=== PATIENT | male | born 1940 | race Caucasian/White ===

== ENCOUNTER 2017-10-26 15:09 | Inpatient (IN) | payer OTHER, MEDICARE ==
[~2017-10-26] VITALS: Ht 175.3 cm; Wt 83.2 kg
[2017-10-26] VITALS (9 sets, daily range): BP systolic 103–119; BP diastolic 56–63; PULSE 49–72; RESP 16; TEMP 98–99.5; O2SAT 97–100
[~2017-10-26 15:09] MED LIST: HYDR200T42 PO; METHOTREXATE INJ; SULF1TAB47 PO; TYLE3 PO
[2017-10-26] MEDS ORDERED: ALUMINUM/MAGNESIUM/SIMETH 30 ML CUP PO ONE (15:30)
[2017-10-26] MEDS ORDERED: LIDOCAINE VISCOUS 2% SOLN 15 ML UDC PO ONE (15:30)
[2017-10-26] MEDS ORDERED: ASPIRIN 325 MG TAB PO ONE (15:30)
--- NOTE | 2017-10-26 16:09 | RADRPT ---
EXAM DATE/TIME: 10/26/2017 15:46 [place] COMPARISON: No previous studies available for comparison. INDICATIONS : Abnormal ekg, sent by MEDICAL HISTORY : notknown SURGICAL HISTORY : not known ENCOUNTER: Initial ACUITY: 1 day PAIN SCORE: 0/10 LOCATION: Bilateral chest FINDINGS: A single view of the chest demonstrates the lungs to be symmetrically aerated without evidence of mas s, infiltrate or effusion. The cardiomediastinal contours are unremarkable. Osseous structures are intact. CONCLUSION: 1. No acute cardiopulmonary disease. Janusz Perea MD on October 26, 2017 at 16:07 Board Certified Radiologist. This report was verified electronically.
[2017-10-26 16:16] LABS: AUTOMATED NEUTROPHIL # 6.4 TH/MM3 (1.8-7.7); BASOPHIL % 0.1 % (0.0-2.0); EOSINOPHIL # 0.1 TH/MM3 (0-0.4); EOSINOPHIL % 0.8 % (0.0-4.0); HEMATOCRIT 39.5 % (39.0-51.0); HEMOGLOBIN 13.6 GM/DL (13.0-17.0); LYMPH % 14.7 % (9.0-44.0); LYMPHOCYTE # 1.2 TH/MM3 (1.0-4.8); MEAN CELL VOLUME 97.2 FL (80.0-100.0); MEAN CORPUSCULAR HEMOGLOBIN 33.5 PG (27.0-34.0); MEAN CORPUSCULAR HGB CONC 34.5 % (32.0-36.0); MEAN PLATELET VOLUME 7.5 FL (7.0-11.0); MONO % 8.4 % (0.0-8.0); MONOCYTE # 0.7 TH/MM3 (0-0.9); PLATELET COUNT 195 TH/MM3 (150-450); RED BLOOD COUNT 4.06 MIL/MM3 (4.50-5.90); RED CELL DISTRIBUTION WIDTH 14.1 % (11.6-17.2); WHITE BLOOD COUNT 8.4 TH/MM3 (4.0-11.0)
[2017-10-26 16:28] LABS: ALBUMIN 3.2 GM/DL (3.4-5.0); AST (GOT) 80 U/L (15-37); BICARBONATE 26.2 MEQ/L (21.0-32.0); BLOOD UREA NITROGEN 13 MG/DL (7-18); CALCIUM 8.5 MG/DL (8.5-10.1); CHLORIDE 104 MEQ/L (98-107); CREATININE 0.74 MG/DL (0.60-1.30); GLOMERULAR FILTRATION RATE 103 ML/MIN (>89); GLUCOSE,RANDOM 94 MG/DL (74-106); SODIUM (NA) 138 MEQ/L (136-145)
[2017-10-26 16:33] LABS: ALKALINE PHOSPHATASE 64 U/L (45-117); ALT (GPT) 18 U/L (12-78); TOTAL BILIRUBIN ADULT 0.6 MG/DL (0.2-1.0); TOTAL PROTEIN 6.5 GM/DL (6.4-8.2)
[2017-10-26 16:40] LABS: PROTHROMBIN TIME - PATIENT 10.5 SEC (9.8-11.6)
[2017-10-26] MEDS ORDERED: ONDANSETRON HCL 4 MG/2 ML VIAL IVP PRN (17:00)
[2017-10-26] MEDS ORDERED: SODIUM CHLORIDE 0.9% FLUSH 10 ML FLUSH IV FLUSH PRN (17:00)
[2017-10-26] MEDS ORDERED: MAGNESIUM HYDROXIDE SUSP 30 ML CUP PO PRN (17:00)
[2017-10-26] MEDS ORDERED: LACTULOSE SYRUP 20 GM/30 ML CUP PO PRN (17:00)
[2017-10-26] MEDS ORDERED: NALOXONE HCL 0.4 MG/ML AMP IV PUSH PRN (17:00)
[2017-10-26] MEDS ORDERED: HEPARIN SODIUM - IV 10,000 UNITS/10 ML VIAL IV ONE (17:00)
[2017-10-26] MEDS ORDERED: NITROGLYCERIN 2% OINT 1 GM PACKET TOPICAL ONE (17:00)
[2017-10-26] MEDS ORDERED: ACETAMINOPHEN 500 MG CPLT PO PRN (17:00)
[2017-10-26] MEDS ORDERED: SENNOSIDES 8.6 MG TAB PO PRN (17:00)
[2017-10-26] MEDS ORDERED: BISACODYL 10 MG SUPP RECTAL PRN (17:00)
[2017-10-26] MEDS ORDERED: ATORVASTATIN 80 MG TAB PO ONE (17:00)
--- NOTE | 2017-10-26 17:06 | HHI.HP ---
[facility] Unknown Admission Diagnosis NSTEMI Diagnoses: Chief Complaint: Chest pain. Travel History International Travel<30 Days: No Contact w/Intl Traveler <30 Da: No Traveled to Known Affected Are: No History of Present Illness Mr. Bryant is a pleasant 77-year-old male with a history of rheumatoid arthritis who presents to the emergency department on 10/26/2017 due to substernal nonradiating chest pain. On 10/25/2017 at around 1 PM patient complained of heartburn-like chest discomfort. He did not have any nausea vomiting or diaphoresis. He did feel some discomfort in his jaw area. This morning again he experienced similar discomfort - heartburn-like chest discomfort that lasted than his typical heartburn does. Nothing seems to make it better or worse. Due to persistent chest discomfort he decided to come to the emergency department. On arrival patient's vitals were largely unremarkable with pulse 58. Troponin was 12.7 and CK-MB was 8.4. EKG shows mild elevation in 2, 3 and aVF. Cardiology was consulted. Patient is scheduled for cardiac catheterization on 10/26/2017. Review of Systems Except as stated in HPI: all other systems reviewed are Neg Past Family Social History Past Medical History Rheumatoid arthritis GERD Past Surgical History Elissa fundoplication Reported Medications Tylenol #3 (Acetaminophen/Codeine Phosphate) 300 Mg/30 Mg Tab 1 Tab PO Q6HPRN FOR PAIN Bactrim Ds (Trimethoprim/Sulfamethoxazole) Tab 1 Tab PO BID Reported [Methotrexate Inj] WE Plaquenil (Hydroxychloroquine Sulfate) 200 Mg Tab 200 Mg PO BID Allergies: Coded Allergies: No Known Allergies (Verified Allergy, Mild, 10/19/08) Family History Father from [place] at [place] 79. No family history of Alzheimer's or Parkinson's. Social History Patient quit smoking in 1980. He smoked for about 25 years. He denies using alcohol or illicit drugs. Physical Exam Vital Signs Vital Signs Date Time Temp Pulse Resp B/P (MAP) Pulse Ox O2 Delivery O2 Flow Rate FiO2 10/26/17 15:26 67 16 99 Room Air 10/26/17 15:23 16 100 Room Air 10/26/17 15:19 98.0 58 16 119/63 (37) 98 Physical Exam GENERAL: This is a well-nourished, well-developed patient, in no apparent distress. SKIN: No rashes, ecchymoses or lesions. Warm and dry. HEAD: Atraumatic. Normocephalic. No temporal or scalp tenderness. EYES: Pupils equal round and reactive. No injection or drainage. ENT: Nose without bleeding, purulent drainage or septal hematoma. Airway patent. NECK: Trachea midline. No lymphadenopathy. Supple, nontender, no meningeal signs. CARDIOVASCULAR: Regular rate and rhythm without murmurs, gallops, or rubs. No JVD. RESPIRATORY: Clear to auscultation. Breath sounds equal bilaterally. No wheezes , rales, or rhonchi. GASTROINTESTINAL: Abdomen soft, non-tender, nondistended. No guarding. MUSCULOSKELETAL: Extremities without clubbing, cyanosis, or edema. NEUROLOGICAL: Awake and alert. Cranial nerves II through XII intact. No focal neurological deficits. Normal speech. Laboratory Laboratory Tests Test 10/26/17 15:25 White Blood Count 8.4 Red Blood Count 4.06 Hemoglobin 13.6 Hematocrit 39.5 Mean Corpuscular Volume 97.2 Mean Corpuscular Hemoglobin 33.5 Mean Corpuscular Hemoglobin Concent 34.5 Red Cell Distribution Width 14.1 Platelet Count 195 Mean Platelet Volume 7.5 Neutrophils (%) (Auto) 76.0 Lymphocytes (%) (Auto) 14.7 Monocytes (%) (Auto) 8.4 Eosinophils (%) (Auto) 0.8 Basophils (%) (Auto) 0.1 Neutrophils # (Auto) 6.4 Lymphocytes # (Auto) 1.2 Monocytes # (Auto) 0.7 Eosinophils # (Auto) 0.1 Basophils # (Auto) 0.0 CBC Comment DIFF FINAL Differential Comment Prothrombin Time 10.5 Prothromb Time International Ratio 1.0 Activated Partial Thromboplast Time 24.9 Blood Urea Nitrogen 13 Creatinine 0.74 Random Glucose 94 Total Protein 6.5 Albumin 3.2 Calcium Level 8.5 Alkaline Phosphatase 64 Aspartate Amino Transf (AST/SGOT) 80 Alanine Aminotransferase (ALT/SGPT) 18 Total Bilirubin 0.6 Sodium Level 138 Potassium Level 3.8 Chloride Level 104 Carbon Dioxide Level 26.2 Anion Gap 8 Estimat Glomerular Filtration Rate 103 Total Creatine Kinase 543 Creatine Kinase MB 45.7 Creatine Kinase MB % 8.4 Troponin I 12.70 Lipase 68 Result Diagram: 10/26/17 1525 10/26/17 1525 Imaging Last Impressions Chest X-Ray 10/26/17 1520 Signed Impressions: Service Date/Time: Thursday, October 26, 2017 15:46 - CONCLUSION: 1. No acute cardiopulmonary disease. MD Danette Swan VTE Risk Assessment Danette VTE Risk Assessment: Mod/High Risk (score >= 2) Caprini Risk Assessment Model Point Value = 1 Point Value = 2 Point Value = 3 Point Value = 5 Age 41-60 Minor surgery BMI > 25 kg/m2 Swollen legs Varicose veins or History of unexplained or recurrent spontaneous Oral contraceptives or hormone replacement Sepsis (< 1 month) Serious lung disease, including pneumonia (< 1 month) Abnormal pulmonary function Acute myocardial infarction Congestive heart failure (< 1 month) History of inflammatory bowel disease Medical patient at bed rest Age 61-74 Arthroscopic surgery Major open surgery (> 45 min) Laparoscopic surgery (> 45 min) Malignancy Confined to bed (> 72 hours) Immobilizing plaster cast Central venous access Age >= 75 History of VTE Family history of VTE Factor V Leiden Prothrombin [id number] Lupus anticoagulant Anticardiolipin antibodies Elevated serum homocysteine Heparin-induced thrombocytopenia Other congenital or acquired thrombophilia Stroke (< 1 month) Elective arthroplasty Hip, pelvis, or leg fracture Acute spinal cord injury (< 1 month) Prophylaxis Regimen Total Risk Factor Score Risk Level Prophylaxis Regimen 0-1 Low Early ambulation 2 Moderate Order ONE of the following: *Sequential Compression Device (SCD) *Heparin 5000 units SQ BID 3-4 Higher Order ONE of the following medications: *Heparin 5000 units SQ TID *Enoxaparin/Lovenox 40 mg SQ daily (WT < 150 kg, CrCl > 30 mL/min) *Enoxaparin/Lovenox 30 mg SQ daily (WT < 150 kg, CrCl > 10-29 mL/min) *Enoxaparin/Lovenox 30 mg SQ BID (WT < 150 kg, CrCl > 30 mL/min) AND/OR *Sequential Compression Device (SCD) 5 or more Highest Order ONE of the following medications: *Heparin 5000 units SQ TID (Preferred with Epidurals) *Enoxaparin/Lovenox 40 mg SQ daily (WT < 150 kg, CrCl > 30 mL/min) *Enoxaparin/Lovenox 30 mg SQ daily (WT < 150 kg, CrCl > 10-29 mL/min) *Enoxaparin/Lovenox 30 mg SQ BID (WT < 150 kg, CrCl > 30 mL/min) AND *Sequential Compression Device (SCD) Assessment and Plan Problem List: (1) NSTEMI (non-ST elevated myocardial infarction) ICD Code: I21.4 - Non-ST elevation (NSTEMI) myocardial infarction (2) Rheumatoid arthritis ICD Code: M06.9 - Rheumatoid arthritis, unspecified Assessment and Plan Mr. Bryant is a pleasant 77-year-old male with a history of GERD, rheumatoid arthritis who presented to the emergency department due to substernal heartburn-like chest pain with radiation to his jaws. Patient had initial episode on 10/25/2017. However due to persistent discomfort on the day of presentation 10/26/2017, patient decided to seek medical attention. On arrival patient's troponin was 12.7. EKG was suspicious for mild ST elevation in lead to especially 3 and aVF. Patient received 325 mg aspirin in the ED. Due to low heart rate he did not receive metoprolol. - Non-ST elevation myocardial infarction - Huller Operator Dr. Fields already evaluated patient and will take him for cardiac catheterization this evening. - Heparin drip started in the ED. - We'll give patient atorvastatin 40 mg now and daily at bedtime starting . Continue aspirin 81 mg daily. - Heart rate is in the upper 50s, avoid beta blockers for now. - Consider Echocardiogram. - Rheumatoid arthritis - Patient takes methotrexate 2.5 mg by mouth weekly. - GERD - Pepcid 20mg BID. Full code. Pharmacological DVT prophylaxis to be considered after Cath. Physician Certification 2 Midnight Certification Type: Admission for Inpatient Services Order for Inpatient Services The services are ordered in accordance with Medicare regulations or non- Medicare payer requirements, as applicable. In the case of services not specified as inpatient-only, they are appropriately provided as inpatient services in accordance with the 2-midnight benchmark. Estimated LOS (days): 2 days is the estimated time the patient will need to remain in the hospital, assuming treatment plan goals are met and no additional complications. Post-Hospital Plan: Home Brennon Goldsmith DO Oct 26, 2017 5:06 pm
--- NOTE | 2017-10-26 17:28 | PD ---
HPI Chief Complaint: Chest Pain Time Seen by Provider: 15:13 Travel History International Travel<30 days: No Contact w/Intl Traveler<30days: No Traveled to known affect area: No History of Present Illness HPI The patient is a 77-year-old male who presents emergency department for chest pain. The patient developed chest pain last night, chest pain is substernal, nonradiating, described as dull, achy, similar to previous GERD. The patient has a history of previous knee cell phone application for GERD with subsequent improvement of his symptoms. He does note mild shortness of breath secondary to the pain but denies any nausea, vomiting, or diaphoresis. He denies any history of hypertension, hyperlipidemia, or coronary artery disease. He denies any history diabetes. He does have a history of rheumatoid arthritis. Symptoms are moderate. PFSH Past Medical History Arthritis: Yes Diminished Hearing: Yes (HEARING AIDS BILAT) GERD: Yes Hypertension: Yes Influenza Vaccination: Yes Past Surgical History Abdominal Surgery: Yes (HIATAL HERNIA SURGERY) Social History Alcohol Use: No Tobacco Use: No Substance Use: No Allergies-Medications (Allergen,Severity, Reaction): Coded Allergies: No Known Allergies (Verified Allergy, Mild, 10/19/08) Reported Meds & Prescriptions Reported Meds & Active Scripts Active Tylenol #3 (Acetaminophen/Codeine Phosphate) 300 Mg/30 Mg Tab 1 Tab PO Q6HPRN FOR PAIN Bactrim Ds (Trimethoprim/Sulfamethoxazole) Tab 1 Tab PO BID Reported [Methotrexate Inj] WE Plaquenil (Hydroxychloroquine Sulfate) 200 Mg Tab 200 Mg PO BID Review of Systems Except as stated in HPI: all other systems reviewed are Neg General / Constitutional: No: Fever Cardiovascular: Positive: Chest Pain or Discomfort Respiratory: Positive: Shortness of Breath Gastrointestinal: Positive: Other (history of GERD with previous Jules fundoplication), No: Nausea, Vomiting Musculoskeletal: No: Weakness Neurologic: No: Dizziness Physical Exam Narrative GENERAL: Awake, alert, pleasant 77-year-old male who appears his stated age and is in no acute respiratory distress. SKIN: Focused skin assessment warm/dry. HEAD: Atraumatic. Normocephalic. EYES: No injection or drainage. ENT: No nasal bleeding or discharge. Mucous membranes pink and moist. NECK: Trachea midline. No JVD. CARDIOVASCULAR: Regular rate and rhythm. No murmur appreciated. RESPIRATORY: No accessory muscle use. Clear to auscultation. Breath sounds equal bilaterally. GASTROINTESTINAL: Abdomen soft, non-tender, nondistended. No rebound tenderness. MUSCULOSKELETAL: No obvious deformities. No clubbing. No cyanosis. No edema. NEUROLOGICAL: Awake and alert. No obvious cranial nerve deficits. Motor grossly within normal limits. Normal speech. PSYCHIATRIC: Appropriate mood and affect; insight and judgment normal. Data Data Last Documented VS Vital Signs Date Time Temp Pulse Resp B/P (MAP) Pulse Ox O2 Delivery O2 Flow Rate FiO2 10/26/17 15:26 67 16 99 Room Air 10/26/17 15:19 98.0 119/63 (81) Orders Orders Electrocardiogram (10/26/17 15:20) Complete Blood Count With Diff (10/26/17 15:20) Comprehensive Metabolic Panel (10/26/17 15:20) Ckmb (Isoenzyme) Profile (10/26/17 15:20) Troponin I (10/26/17 15:20) Prothrombin Time / Inr (Pt) (10/26/17 15:20) Act Partial Throm Time (Ptt) (10/26/17 15:20) Lipase (10/26/17 15:20) Chest, Single Ap (10/26/17 15:20) Iv Access Insert/Monitor (10/26/17 15:20) Ecg Monitoring (10/26/17 15:20) Oximetry (10/26/17 15:20) Al-Mag Hy-Si 40-40-4 Mg/Ml Liq (Mag-Al P (10/26/17 15:30) Lidocaine 2% Viscous (Xylocaine 2% Visco (10/26/17 15:30) Aspirin (Aspirin) (10/26/17 15:30) CKMB (10/26/17 15:25) CKMB% (10/26/17 15:25) Nitroglycerin 2% Oint (Nitroglycerin 2% (10/26/17 17:00) NPO (10/26/17 16:50) Heparin Inj (Heparin Inj) (10/26/17 17:00) Heparin Inj (Heparin Inj) (10/26/17 23:00) Heparin Inj (Heparin Inj) (10/26/17 23:00) Heparin-D5w 25,000 U/250 Ml (Heparin-D5w (10/26/17 17:30) Act Partial Throm Time (Ptt) (10/26/17 16:50) Cbc No Diff, Includes Plts (10/26/17 16:50) Cbc No Diff, Includes Plts (10/29/17 06:00) Act Partial Throm Time (Ptt) (10/26/17 23:50) Occult Blood (Hemoccult) Stool (10/26/17 16:50) Admit Order (Ed Use Only) (10/26/17 16:51) Labs Laboratory Tests Test 10/26/17 15:25 White Blood Count 8.4 TH/MM3 Red Blood Count 4.06 MIL/MM3 Hemoglobin 13.6 GM/DL Hematocrit 39.5 % Mean Corpuscular Volume 97.2 FL Mean Corpuscular Hemoglobin 33.5 PG Mean Corpuscular Hemoglobin Concent 34.5 % Red Cell Distribution Width 14.1 % Platelet Count 195 TH/MM3 Mean Platelet Volume 7.5 FL Neutrophils (%) (Auto) 76.0 % Lymphocytes (%) (Auto) 14.7 % Monocytes (%) (Auto) 8.4 % Eosinophils (%) (Auto) 0.8 % Basophils (%) (Auto) 0.1 % Neutrophils # (Auto) 6.4 TH/MM3 Lymphocytes # (Auto) 1.2 TH/MM3 Monocytes # (Auto) 0.7 TH/MM3 Eosinophils # (Auto) 0.1 TH/MM3 Basophils # (Auto) 0.0 TH/MM3 CBC Comment DIFF FINAL Differential Comment Prothrombin Time 10.5 SEC Prothromb Time International Ratio 1.0 RATIO Activated Partial Thromboplast Time 24.9 SEC Blood Urea Nitrogen 13 MG/DL Creatinine 0.74 MG/DL Random Glucose 94 MG/DL Total Protein 6.5 GM/DL Albumin 3.2 GM/DL Calcium Level 8.5 MG/DL Alkaline Phosphatase 64 U/L Aspartate Amino Transf (AST/SGOT) 80 U/L Alanine Aminotransferase (ALT/SGPT) 18 U/L Total Bilirubin 0.6 MG/DL Sodium Level 138 MEQ/L Potassium Level 3.8 MEQ/L Chloride Level 104 MEQ/L Carbon Dioxide Level 26.2 MEQ/L Anion Gap 8 MEQ/L Estimat Glomerular Filtration Rate 103 ML/MIN Total Creatine Kinase 543 U/L Creatine Kinase MB 45.7 NG/ML Creatine Kinase MB % 8.4 % Troponin I 12.70 NG/ML Lipase 68 U/L [facility] Medical Decision Making Medical Screen Exam Complete: Yes Emergency Medical Condition: Yes Medical Record Reviewed: Yes Interpretation(s) EKG reveals sinus bradycardia with sinus arrhythmia. ST elevation in lead 3 that is not seen in lead aVF or lead 2. Last Impressions Chest X-Ray 10/26/17 1520 Signed Impressions: Service Date/Time: Thursday, October 26, 2017 15:46 - CONCLUSION: 1. No acute cardiopulmonary disease. Janusz Perea MD Laboratory Tests Test 10/26/17 15:25 White Blood Count 8.4 TH/MM3 Red Blood Count 4.06 MIL/MM3 Hemoglobin 13.6 GM/DL Hematocrit 39.5 % Mean Corpuscular Volume 97.2 FL Mean Corpuscular Hemoglobin 33.5 PG Mean Corpuscular Hemoglobin Concent 34.5 % Red Cell Distribution Width 14.1 % Platelet Count 195 TH/MM3 Mean Platelet Volume 7.5 FL Neutrophils (%) (Auto) 76.0 % Lymphocytes (%) (Auto) 14.7 % Monocytes (%) (Auto) 8.4 % Eosinophils (%) (Auto) 0.8 % Basophils (%) (Auto) 0.1 % Neutrophils # (Auto) 6.4 TH/MM3 Lymphocytes # (Auto) 1.2 TH/MM3 Monocytes # (Auto) 0.7 TH/MM3 Eosinophils # (Auto) 0.1 TH/MM3 Basophils # (Auto) 0.0 TH/MM3 CBC Comment DIFF FINAL Differential Comment Prothrombin Time 10.5 SEC Prothromb Time International Ratio 1.0 RATIO Activated Partial Thromboplast Time 24.9 SEC Blood Urea Nitrogen 13 MG/DL Creatinine 0.74 MG/DL Random Glucose 94 MG/DL Total Protein 6.5 GM/DL Albumin 3.2 GM/DL Calcium Level 8.5 MG/DL Alkaline Phosphatase 64 U/L Aspartate Amino Transf (AST/SGOT) 80 U/L Alanine Aminotransferase (ALT/SGPT) 18 U/L Total Bilirubin 0.6 MG/DL Sodium Level 138 MEQ/L Potassium Level 3.8 MEQ/L Chloride Level 104 MEQ/L Carbon Dioxide Level 26.2 MEQ/L Anion Gap 8 MEQ/L Estimat Glomerular Filtration Rate 103 ML/MIN Total Creatine Kinase 543 U/L Creatine Kinase MB 45.7 NG/ML Creatine Kinase MB % 8.4 % Troponin I 12.70 NG/ML Lipase 68 U/L Differential Diagnosis Differential showed diagnosis includes STEMI, ACS, GERD, gastritis, pancreatitis , peptic ulcer disease, esophageal spasm. Narrative Course IV was established, labs are drawn and sent, and the patient was placed on cardiac telemetry monitoring and continuous pulse oximetry monitoring. Chest x- ray was obtained. EKG was ordered and interpreted. Patient was administered aspirin, Nitropaste, and monitored in the emergency department. EKG revealed sinus bradycardia with sinus arrhythmia, mild ST elevation lead 3 not seen only 2 or aVF. No reciprocal changes noted. Chest x-rays obtained. Unremarkable. Patient's troponin was positive. I discussed the patient with the on-call acquisition marketing manager for [facility], Dr. Fields, who recommended heparin, nothing by mouth, will go to the [facility]. The patient was placed on a heparin drip, he was chest pain-free in the emergency department. I discussed the patient with the on-call [facility] hospitalist, Dr. Goldsmith, who agrees with admission. The patient will be admitted to go to the [facility]. Critical Care Narrative Aggregate critical care time was 40 minutes. Time to perform other separately billable procedures was not included in the critical care time. My time did not include minutes spent treating any other patients simultaneously or on activities that did not directly contribute to the patient's treatment. The services I provided to this patient were to treat and/or prevent clinically significant deterioration that could result in: Ischemia, arrhythmia, cardiogenic shock, . I provided critical care services requiring my management, as noted below: Chart data review, documentation time, medication orders and management, vital sign assessments/reviewing monitor data, ordering and reviewing lab tests, ordering and interpreting/reviewing x-rays and diagnostic studies, care of the patient and discussion of the patient with the admitting physicians. Physician Communication Physician Communication I discussed the patient with acquisition marketing manager, Dr. Fields, and the hospitalist, Dr. Goldsmith. Diagnosis Primary Impression: NSTEMI, initial episode of care Admitting Information Admitting Physician Requests: Admit Condition: Stable Juan José Ventura MD Oct 26, 2017 17:28
[2017-10-26] MEDS ORDERED: ATORVASTATIN 40 MG TAB PO ONE (17:30)
[2017-10-26] MEDS ORDERED: HEPARIN-D5W 25,000 U/250 ML 250 ML IV SCH (17:30)
[2017-10-26] MEDS ORDERED: METH2.5T PO (19:03)
[2017-10-26] MEDS ORDERED: MIDAZOLAM HCL 2 MG/2 ML VIAL ONE ×2 (19:24→19:39)
[2017-10-26] MEDS ORDERED: PHENYLEPHRINE HCL 10 MG/ML VIAL ONE (19:58)
[2017-10-26] MEDS ORDERED: STERILE WATER FOR INJECTION 10 ML VIAL ONE (20:07)
[2017-10-26] MEDS ORDERED: BIVALIRUDIN 250 MG VIAL ONE (20:07)
[2017-10-26] MEDS ORDERED: TICAGRELOR 90 MG TAB PO ONE (20:17)
[2017-10-26] MEDS ORDERED: BIVALIRUDIN INJ 250 MG in SODIUM CHLORIDE 0.9% INJ 50 ML IV SCH (20:34)
[2017-10-26] MEDS ORDERED: SODIUM CHLOR 0.9% 1000 ML INJ 1,000 ML IV SCH (20:34)
--- NOTE | 2017-10-26 20:35 | CATHPROC ---
[facility] HIS Report Study Information Study Number Admission Scheduled Start Study Start [id number] Oct 26 2017 4:52PM 10/26/2017 Oct 26 2017 7:02PM [place] [facility] Cardiac Catheterization Admit Source Facility Department Emergency department [facility] - Morphology Teacher Physician and Clinical Staff Initial Cuate Altman Automatic Paint Sprayer Operator Amisha Calabrese,BOB Recorder Kortney Hutchison,RT(R) Scrub Verónica López,TAR PROCESSING TECHNICIAN TECH2 Procedures Performed Procedure Location (Site) Vessel Name Angiogram LV LV Ventricle Coronary Angiograms LCA Left Coronary Coronary Angiograms RCA Right Coronary Drug Eluting Inflatio RCA Mid Right Coronary L Heart Cath PTCA RCA Mid Right Coronary Wire insertion Fem Art (right) Femoral Art Equipment Time English Language Arts Teacher Description Size Mfg Part Number Used/Scraped WIRE, BALANCE MIDDLEWEIGHT [id number] 19:59 [employer] 190CM Used 190CM *[id number] TRANSDUCER, TRUWAVE [id number] 19:11 LUTHER AVELAR * Used W/STOCKCOCK *[id number] *[id number] *[id number] *[id number] [id number] *[id number] PIGTAIL ANG. 145 INFINITI [id number] CATHETER *[id number] 20:19 DAIG/[employer]. [employer]UARD[employer] MEDICAL ANGIOSEAL, FR6 VIP FR 6 Used *[id number] 19:11 [employer], CCL CUSTOM * Used *[id number] 19:11 [employer]O PACER PEN, SKIN DUAL W/ RULER * Used *[id number] 20:00 [employer] BALLOON, 2.0 X 20MM EUPHORA 20MM Used *[id number] BALLOON, 2.75 X 12MM NC [id number] 20:11 [employer] 12MM Used EUPHORA *[id number] 20:03 [employer] STENT, 2.75 18MM SHARMILA 2.75 18MM Used *[id number] 20:02 [employer] MEDICAL 30 FRANDY INDEFLATOR Used *[id number] 19:11 [employer] MEDICAL SHEATH, FR6.5 PRELUDE 11CM FR 6.5 038ACT Used *[id number] 19:11 [employer] MEDICAL WIRE, 3MMJ .035 180CM 180CM Used *[id number] 19:11 NAMIC MANIFOLD, 4 PORT * Used *[id number] 20:15 NAMIC TUBING, HIGH PRESSURE 20" 20" Used *[id number] 19:11 [employer] OMNIPAQUE, 350 MG, 100ML 100ML [id number] Used 20:34 [employer]COMED OMNIPAQUE, 350 MG, 50ML 50ML [id number] Used [id number] 19:11 [employer] MED[employer] BLANKET,WARM AIR CCL * Used *[id number] Equipment Model, Serial, Lot Number and Expiration Data Description Model Number Serial Number Lot Number Expiration Date ANGIOSEAL, LYNDSAY VIP [id number] 07-10-2018 STENT, 2.75 18MM SHARMILA [id number] 04-25-2019 History: Current Medications Medication Dosage/Unit Route Frequency Last Date/Time Taken ASA LIPITOR History: Allergies Allergy Reaction No Known Allergies History: Risk Factors Family History of Hypertension Dyslipidemia Previous CO Previous Heart Failure Premature CAD Yes No No No No Prior Valve Prior PCI Prior CABG Surgery No No No Cerebrovascular Peripheral Artery Chronic Lung On Dialysis Diabetes Disease Disease Disease No No No Yes No History: Symptoms/Diagnosis Selection Items Chest pain SOB Labs Hgb (g/dl) Hct (%) RBC (MIL/MM3) WBC (l/cumm) Platelets (thousands) 11.60-17.00 35.00-51.00 4.00-5.90 4.00-11.00 150.00-450.00 13.6 39.5 4 8.4 195 Glucose (mg/dl) BUN (mg/dl) Creatinine (mg/dl) BUN:Creatinine (1:x) 74.00-106.00 7.00-18.00 0.50-1.30 10.00-20.00 94 13 0.7 18.6 Na (meq/l) K (meq/l) 136.00-145.00 3.50-5.10 138 3.8 INR (PTT:PT) 0.90-1.10 1 Troponin I (ng/ml) CPK (u/l) CPK-MB (ng/ML) 0.02-0.05 26.00-308.00 0.50-3.60 12.7 543 45.7 Medication Medication Total Dose (Bolus/Oral) Medication Total Dosage/Unit 1% XYLOCAINE 20 mL ANGIOMAX BOLUS 13 mL BRILINTA 180 mg NTG (IC) 100 mcg VERSED 3 mg Medications (Bolus/Oral) Medication Time Given Dosage/Unit Administered By Reason VERSED 10/26/2017 7:37:50 PM 1 mg Hesher, Amisha 1 mg VERSED given in lab by Amisha Calabrese RN in Right Antecubital via Peripheral IV. Ordered by Cuate Kent. VERSED 10/26/2017 7:38:30 PM 1 mg Hesher, Amisha 1 mg VERSED given in lab by Amisha Calabrese RN in Right Antecubital via Peripheral IV. Ordered by Cuate Kent. VERSED 10/26/2017 7:40:33 PM 1 mg Hesher, Amisha 1 mg VERSED given in lab by Amisha Calabrese RN in Right Antecubital via Peripheral IV. Ordered by Cuate Kent. 1% XYLOCAINE 10/26/2017 7:41:12 PM 20 mL Cuate Fields 20 mL 1% XYLOCAINE given in lab by Cuate Fields in Right Groin via Subcutaneous. ANGIOMAX BOLUS 10/26/2017 7:52:19 PM 13 mL Moses Calabreseon 13 mL ANGIOMAX BOLUS given in lab by Amisha Calabrese RN in Right Antecubital via Peripheral IV. Order ed by Cuate Fields. NTG (IC) 10/26/2017 8:07:17 PM 100 mcg Cuate Fields 100 mcg NTG (IC) given in lab by Cuate Fields in Right Groin via Intra-coronary. BRILINTA 10/26/2017 8:23:58 PM 180 mg Amisha Calabrese 180 mg BRILINTA given in lab by Amisha Calabrese, BOB via Oral. Ordered by Cuate Fields. Medication (Drip) Medication Time Given Dosage/Unit Concentration/Unit Diluent (ml) Solution ANGIOMAX DRIP 10/26/2017 7:53:36 PM 1.752 mg/kg/hr 250 mg 50 NaCl .9 1.752 mg/kg/hr ANGIOMAX DRIP given in lab by Amisha Calabrese RN in Right Antecubital via Peripheral I V. Pump/Drip Flow = 30.1 ml/hr using NaCl .9 with a concentration of 250 mg in 50 ml. Ordered by Cuate Fields. ANGIOMAX DRIP 10/26/2017 8:22:49 PM 0 units/hr 0 STOPPED 0 units/hr ANGIOMAX DRIP STOPPED given in lab by Amisha Calabrese RN in Right Antecubital via Peripher al IV. Pump/Drip Flow = 30.1 ml/hr using [Solution Name]. Ordered by Cuate Fields. IV Solutions 10/26/2017 7:13:10 PM 50 mL (IV) NaCl .9 IV Solutions given in lab by Amisha Calabrese RN in Right Antecubital via Peripheral IV. Pump/Drip Paul w using NaCl .9. Initial Case Assessment Cardiovascular HR Rhythm NIBP Chest Pain 75 SR 104/73 0 Edema Present Skin color Skin None Normal Warm Dry Circulatory - Right Pulses Dorsalis Pedis Femoral 3 3 Scale (0,1,2,3,4,d) Circulatory - Left Pulses Dorsalis Pedis Femoral 3 3 Scale (0,1,2,3,4,d) Neurological State Oriented to time-place- Alert Moves all extremities person Respiration - General Respiration Rate SpO2 (%) (B/min) 13 100 Chronological Log Time Study Chronological Log 19:12:55 Patient arrived via Bed. 19:12:56 Patient Name, D.O.B, / Armband Verified By R.N. 19:12:56 Consent signed by the physician and the patient and verified by the Morphology Teacher staff. 19:12:57 Pre-op and post- op instructions given; patient acknowledges understanding of instructions. 19:12:57 Verbal Stimulation=2 Physical Stimulation=2 Airway=2 Respiration=2 TOTAL=8. (0=absent, 1=li mited, 2=present) 19:12:58 Presedation assessment performed by Morphology Teacher RN. 19:13:01 Patient has been NPO for More than 6Hrs. 19:13:02 Skin Breakdown- NONE PER PT 19:13:04 Patient Warmer Placed on the Table. 19:13:06 Ankit Prominences Protected 19:13:09 A # 18 IV was noted in the Antecubital (right). Grade = 0 19:13:10 IV Solutions given in lab by Amisha Calabrese RN in Right Antecubital via Peripheral IV. Pum p/Drip Flow using NaCl .9. 19:13:11 History and physical on the chart or being dictated. Assessment: Initial Case, HR=75 BPM, Rhythm=SR, QCGU=504/73 mmhg, Chest Pain=0, Edema=None, Col or=Normal, Skin = Warm, Dry Right Pulses: Rajendra Ped=3, Femoral=3 19:13:12 Left Pulses: Rajendra Ped=3, Femoral=3 Neurological: State=Alert, Ox3, DORMAN Respiration: Resp=13 B/min, AbH8=888 % Vitals capture started with the following parameters, Patient=Adult, Interval=5 min, Initial Pr uvztxk=707 mmHg, 19:22:20 Deflation Rate=5 mmHg, Cuff placed on Left Arm 19:22:54 HR=72 bpm, BUXK=958/73 mmhg, ZwF3=669.0 %, Resp=27 B/min 19:27:38 MD paged 19:27:41 Reference ECG taken 19:28:24 HR=72 bpm, KPPS=491/71 mmhg, SpO2=99.0 %, Resp=17 B/min 19:28:29 Pressure channel 1 zeroed. 19:32:54 HR=73 bpm, VNKQ=185/66 mmhg, SpO2=99.0 %, Resp=18 B/min 19:33:14 MD arrived. Time Out. Correct patient, correct procedure, correct physician, power injector not loaded with contrast with surgical 19:37:43 team present. Time Out Concurred by MD and individual staff in procedure. 19:37:50 1 mg VERSED given in lab by Amisha Calabrese, BOB in Right Antecubital via Peripheral IV. Orde red by Cuate Fields. 19:37:53 HR=76 bpm, QMYA=114/65 mmhg, SpO2=98.0 %, Resp=9 B/min 19:38:30 Case Start 19:38:30 1 mg VERSED given in lab by Amisha Calabrese, BOB in Right Antecubital via Peripheral IV. Orde red by Cuate Fields. 19:40:33 1 mg VERSED given in lab by Amisha Calabrese, BOB in Right Antecubital via Peripheral IV. Orde red by Cuate Fields. 19:41:12 20 mL 1% XYLOCAINE given in lab by Cuate Fields in Right Groin via Subcutaneous. 19:42:44 Access site was Right Femoral Artery. 19:42:51 A SHEATH, FR6.5 PRELUDE 11CM FR 6.5 was advanced into the Fem Art (right) using the Percuta neous technique. 19:42:56 HR=70 bpm, NIBP=99/57 mmhg, SpO2=97.0 %, Resp=26 B/min A JL 4.0 INFINITI CATHETER FR 6 was advanced over a wire. OMNIPAQUE, 350 MG, 100ML 100ML was us ed for 19:43:39 injections. Recorded Pressure: Ao, HR=65, Condition=Condition 1 19:44:55 (Aorta) Ao 86/48/65 19:45:28 The LCA was injected and visualized at various angles. OMNIPAQUE, 350 MG, 100ML 100ML used . 19:46:51 Catheter was removed 19:47:51 HR=79 bpm, XUSL=700/58 mmhg, SpO2=98.0 %, Resp=16 B/min A 3DRC INFINITI CATHETER FR 6 was advanced over a wire. OMNIPAQUE, 350 MG, 100ML 100ML was used for 19:47:58 injections. 19:48:34 The RCA was injected and visualized at various angles. OMNIPAQUE, 350 MG, 100ML 100ML used . 19:49:14 Catheter was removed A JR 4.0 GUIDE CATHETER FR 6 was advanced over a wire. OMNIPAQUE, 350 MG, 100ML 100ML was used for 19:50:17 injections. 13 mL ANGIOMAX BOLUS given in lab by Amisha Calabrese, BOB in Right Antecubital via Peripheral IV. Ordered by Donnie, 19:52:19 Cuate. 19:52:54 HR=77 bpm, ALGR=436/61 mmhg, SpO2=97.0 %, Resp=18 B/min 19:53:30 Catheter was removed 1.752 mg/kg/hr ANGIOMAX DRIP given in lab by Amisha Calabrese, BOB in Right Antecubital via [facility] eral IV. Pump/Drip 19:53:36 Flow = 30.1 ml/hr using NaCl .9 with a concentration of 250 mg in 50 ml. Ordered by Nikos Fields. A JR 4.0 SH GUIDE CATHETER FR 6 was advanced over a wire. OMNIPAQUE, 350 MG, 100ML 100ML was us ed for 19:54:44 injections. 19:57:53 HR=75 bpm, HVZA=426/61 mmhg, SpO2=96.0 %, Resp=17 B/min 19:58:53 A WIRE, BALANCE MIDDLEWEIGHT 190CM 190CM was inserted via Fem Art (right). 19:59:23 Interventional wire has crossed the lesion A BALLOON, 2.0 X 20MM EUPHORA 20MM was inserted over WIRE, BALANCE MIDDLEWEIGHT 190CM 190CM via the 20:01:47 Fem Art (right). A BALLOON, 2.0 X 20MM EUPHORA 20MM over a WIRE, BALANCE MIDDLEWEIGHT 190CM 190CM in the RCA Mid was 20:01:54 inflated using a 30 FRANDY INDEFLATOR at 14 frandy for 23 sec. 20:02:52 HR=73 bpm, XVWR=124/62 mmhg, SpO2=96.0 %, Resp=13 B/min 20:03:02 Balloon Removed. A STENT, 2.75 18MM SHARMILA 2.75 18MM was advanced through a JR 4.0 SH GUIDE CATHETER FR 6 over a W PAULO, 20:04:40 BALANCE MIDDLEWEIGHT 190CM 190CM. A STENT, 2.75 18MM SHARMILA 2.75 18MM was deployed using a 30 FRANDY INDEFLATOR at 12 atmospheres for 22 seconds 20:05:04 in the RCA Mid. 20:06:39 Delivery device removed 20:07:17 100 mcg NTG (IC) given in lab by Cuate Fields in Right Groin via Intra-coronary. 20:07:53 HR=80 bpm, QEDS=544/63 mmhg, SpO2=96.0 %, Resp=15 B/min A BALLOON, 2.75 X 12MM NC EUPHORA 12MM was inserted over WIRE, BALANCE MIDDLEWEIGHT 190CM 190CM via 20:11:28 the Fem Art (right). A BALLOON, 2.75 X 12MM NC EUPHORA 12MM over a WIRE, BALANCE MIDDLEWEIGHT 190CM 190CM in the RCA Mid 20:11:34 was inflated using a 30 FRANDY INDEFLATOR at 20 frandy for 23 sec. 20:12:52 HR=90 bpm, WNFV=113/78 mmhg, SpO2=96.0 %, Resp=19 B/min A BALLOON, 2.75 X 12MM NC EUPHORA 12MM over a WIRE, BALANCE MIDDLEWEIGHT 190CM 190CM in the RCA Mid 20:13:02 was inflated using a 30 FRANDY INDEFLATOR at 20 frandy for 15 sec. 20:13:28 Balloon Removed. 20:15:02 Wire removed 20:15:04 Catheter was removed A PIGTAIL ANG. 145 INFINITI CATHETER FR 6 was advanced over a wire. OMNIPAQUE, 350 MG, 100ML 10 0ML was 20:15:09 used for injections. Recorded Pressure: LV, HR=79, Condition=Condition 1 20:16:11 (Left Ventricle) LV 121/7/16 20:16:31 The LV was injected at 10 cc/sec for a total of 30. OMNIPAQUE, 350 MG, 50ML 50ML used. Recorded Pressure: LV, Ao, HR=82, Condition=Condition 1 20:17:34 (Left Ventricle) LV 110/6/13, (Aorta) Ao 119/63/89 20:17:55 HR=80 bpm, AXCI=844/75 mmhg, SpO2=96.0 %, Resp=19 B/min 20:18:05 Catheter was removed 20:18:41 An injection in the Fem Art (right) was made through the SHEATH, FR6.5 PRELUDE 11CM FR 6.5. 20:20:02 ANGIOSEAL, FR6 VIP FR 6 placement in the Fem Art (right) 20:21:07 Case End 20:21:09 Sterile dressing applied to site 20:21:10 No case complications noted. 20:21:11 Case complication noted. 20:21:13 Cine recording checked. 20:21:14 Bedside Report will be given. 20:21:16 Implantable Device card placed in patient's chart. 20:21:19 Contrast Scanned 20:21:25 A Left Heart Cath was performed. 0 units/hr ANGIOMAX DRIP STOPPED given in lab by Amisha Calabrese, BOB in Right Antecubital via Pe ripheral IV. 20:22:49 Pump/Drip Flow = 30.1 ml/hr using [Solution Name]. Ordered by Cuate Fields. 20:22:52 HR=86 bpm, NVFR=552/80 mmhg, SpO2=97.0 %, Resp=22 B/min 20:23:58 180 mg BRILINTA given in lab by Amisha Calabrese, BOB via Oral. Ordered by Cuate Fields. 20:27:56 HR=83 bpm, TSEX=955/77 mmhg, SpO2=96.0 %, Resp=18 B/min 20:35:27 Patient moved to stretcher End Study - Contrast Media Used In Study Contrast Total Opened (mL) Total Used (mL) Total Wasted (mL) Omnipaque 120 120 0 End Study - Maximum Contrast Load Max Contrast Load (mL) 613.6 End Study - Radiation Exposure Fluoro Time (minutes) 6.8 End Study - Patient Disposition Complications Transferred To Interventional Outcome No Telemetry Bed successful
[2017-10-26] MEDS ORDERED: oxyCODONE/ACETAMINOPHEN 5 MG/325 MG TAB PO PRN (20:45)
[2017-10-26] MEDS ORDERED: ACETAMINOPHEN 325 MG TAB PO PRN (20:45)
[2017-10-26] MEDS ORDERED: MISC INFORMATION XX ONE (20:45)
[2017-10-26] MEDS: METOPROLOL TARTRATE 25 MG TAB PO SCH (21:00)
[2017-10-26] MEDS ORDERED: ATORVASTATIN 40 MG TAB PO SCH (21:00)
[2017-10-26] MEDS: SODIUM CHLORIDE 0.9% FLUSH 10 ML FLUSH IV FLUSH SCH (21:00)
[2017-10-26] MEDS: FAMOTIDINE 20 MG TAB PO SCH (21:11)
[2017-10-26] MEDS ORDERED: HEPARIN SODIUM - IV 10,000 UNITS/10 ML VIAL IV PRN ×2 (23:00)
[2017-10-27] VITALS (20 sets, daily range): BP systolic 103–148; BP diastolic 60–97; PULSE 48–68; RESP 16–17; TEMP 98.1–99.2; O2SAT 97–100
[2017-10-27 06:44] LABS: AUTOMATED NEUTROPHIL # 4.3 TH/MM3 (1.8-7.7); BASOPHIL % 0.3 % (0.0-2.0); EOSINOPHIL # 0.1 TH/MM3 (0-0.4); HEMOGLOBIN 12.6 GM/DL (13.0-17.0); LYMPH % 22.7 % (9.0-44.0); LYMPHOCYTE # 1.5 TH/MM3 (1.0-4.8); MEAN CELL VOLUME 96.4 FL (80.0-100.0); MEAN CORPUSCULAR HEMOGLOBIN 33.7 PG (27.0-34.0); MEAN CORPUSCULAR HGB CONC 34.9 % (32.0-36.0); MEAN PLATELET VOLUME 7.2 FL (7.0-11.0); MONO % 10.6 % (0.0-8.0); MONOCYTE # 0.7 TH/MM3 (0-0.9); NEUT % 65.4 % (16.0-70.0); PLATELET COUNT 160 TH/MM3 (150-450); RED BLOOD COUNT 3.74 MIL/MM3 (4.50-5.90); RED CELL DISTRIBUTION WIDTH 13.9 % (11.6-17.2); WHITE BLOOD COUNT 6.5 TH/MM3 (4.0-11.0)
[2017-10-27 07:09] LABS: BICARBONATE 25.9 MEQ/L (21.0-32.0); CALCIUM 8.3 MG/DL (8.5-10.1); CREATININE 0.77 MG/DL (0.60-1.30)
[2017-10-27 07:14] LABS: CHOLESTEROL/ HDL RATIO 2.55 RATIO; HDL CHOLESTEROL 41.5 MG/DL (40.0-60.0)
[2017-10-27] MEDS: SODIUM CHLORIDE 0.9% FLUSH 10 ML FLUSH IV FLUSH SCH ×2 (09:00→20:58)
[2017-10-27] MEDS ORDERED: ASPIRIN 81 MG CHEW TAB PO SCH (09:00)
[2017-10-27] MEDS: FAMOTIDINE 20 MG TAB PO SCH ×2 (10:08→21:00)
[2017-10-27] MEDS: TICAGRELOR 90 MG TAB PO SCH ×2 (10:08→21:00)
[2017-10-27] MEDS: ASPIRIN 81 MG CHEW TAB CHEW SCH (10:08)
[2017-10-27] MEDS: METOPROLOL TARTRATE 25 MG TAB PO SCH ×2 (10:09→21:00)
[2017-10-27] MEDS ORDERED: ATOR40TA16 PO (11:10)
[2017-10-27] MEDS ORDERED: METO25TA3 PO (11:10)
[2017-10-27] MEDS ORDERED: BRIL90TA PO (11:10)
[2017-10-27] MEDS ORDERED: OXYC1TAB63 PO (11:10)
[2017-10-27] MEDS ORDERED: ASPI81 CHEW (11:10)
--- NOTE | 2017-10-27 11:27 | MA ---
cc: SHARRON BRIGGS M.D. DATE: 10/26/2017. PROCEDURE PERFORMED: Left heart catheterization, left ventriculography, coronary angiography, balloon angioplasty and stenting of the mid right coronary artery. DESCRIPTION OF THE PROCEDURE IN DETAIL: The patient was brought to the cardiac radiographer cardiac catheterization under urgent conditions. The right groin was prepped and draped in a sterile fashion. Using 1% lidocaine for local anesthesia, a 6.5-Bulgarian sheath was easily inserted requiring only a single front wall stick left. Coronary angiography was then completed using a left 4 Jennifer for the left coronary artery and a 3DRC for the right coronary artery and I then switched to a right 4 Jennifer guiding catheter. Intravenous Angiomax was started across the right coronary artery with a BMW wire. I predilated with a 2 mm balloon and then stented with a 2.75 x 18 mm Colbert stent at 12 atmospheres. Angiography was then obtained. I postdilated the mid and proximal portions of the stent with a 2.75 x 12 mm NC balloon at 18 atmospheres. Angiography demonstrated an excellent result with GERALD III flow. The patient tolerated this well. The guiding catheter was removed. An angled pigtail catheter was then used for a left ventriculography and then a pullback. Angiography was then obtained of the right femoral artery via the sheath followed by uncomplicated Angio-Seal placement. The patient was then loaded with Brilinta. There were no complications. FINDINGS: 1. HEMODYNAMICS: Left ventricular pressure was 110/6 with an end diastolic pressure of 13. Aortic pressure was 119/63 with a mean of 89. There was no gradient during pullback from the left ventricle to the aorta. 2. LEFT VENTRICULOGRAPHY: Left ventriculography shows posterior basal and diaphragmatic akinesis. The ejection fraction is about 45%. 3. CORONARY ANGIOGRAPHY: The left main coronary artery appears normal. The proximal left anterior descending has about 20% irregularities. The mid left anterior descending has about 30% focal stenosis after the second diagonal branch. The left anterior descending gives off more than one diagonal branch. The very first diagonal branch is very small and it is unremarkable. The second diagonal branch has about 75% stenosis but is smaller than 2 mm. The third diagonal branch is about 2 mm and it has 60% somewhat diffuse disease. I passed all the diagonal branches. The mid to distal left anterior descending is notable for a prominent myocardial bridge. The circumflex artery has about 20% proximal irregularities. It gives off two significant marginal branches, a small posterolateral branch and then a much larger posterolateral branch. The right coronary artery is dominant but this vessel has a 99% mid stenosis with clot and there is distal irregularity. It does give off a posterior descending artery and a posterolateral branch consistent with it being dominant. 4. RESULTS OF STENTING: Following stenting of the mid right coronary artery, a 0% or minus 10% residual stenosis has been achieved without evidence of thrombus or dissection. CONCLUSIONS: 1. Mildly impaired left ventricular function. 2. Normal hemodynamics. 3. Two-vessel disease involving the diagonal branch of the left anterior descending which was small and a critical mid right coronary artery stenosis. 4. Successful drug-eluting stent implantation of the mid right coronary artery. PLAN: 1. The patient will continue on 81 mg aspirin and Brilinta. 2. Will introduce a beta-leonor if hemodynamics and heart rate permit. 3. Anticipated hospital stay is two days. ADDENDUM Initial right 4 Jennifer catheter and I used a right 4 Jennifer guiding catheter with side holes. Also, Angio-Seal was performed at the end of the case. MD INES Villarreal/KEITH /8:28 PM /8:30 AM
--- NOTE | 2017-10-27 12:32 | PD.CARD.PN ---
Subjective Subjective Remarks No angina or SOB Objective Medications Current Medications Medications (Trade) Dose Ordered Sig/Chun Route Start Time Stop Time Status Last Admin (Heparin Inj) 5,000 units UNSCH PRN IV 10/26/17 23:00 (Heparin Inj) 2,500 units UNSCH PRN IV 10/26/17 23:00 Heparin Sodium/ Dextrose 250 ml @ 10 mls/hr TITRATE IV 10/26/17 17:30 10/26/17 17:22 (NS Flush) 2 ml UNSCH PRN IV FLUSH 10/26/17 17:00 (NS Flush) 2 ml BID IV FLUSH 10/26/17 21:00 10/27/17 09:00 (Tylenol) 500 mg Q4H PRN PO 10/26/17 17:00 (Zofran Inj) 4 mg Q6H PRN IVP 10/26/17 17:00 (Narcan Inj) 0.4 mg UNSCH PRN IV PUSH 10/26/17 17:00 (Milk Of Magnesia Liq) 30 ml Q12H PRN PO 10/26/17 17:00 (Senokot) 17.2 mg Q12H PRN PO 10/26/17 17:00 (Dulcolax Supp) 10 mg DAILY PRN RECTAL 10/26/17 17:00 (Lactulose Liq) 30 ml DAILY PRN PO 10/26/17 17:00 (Aspirin Chew) 81 mg DAILY CHEW 10/27/17 09:00 10/27/17 10:08 (Lipitor) 40 mg HS PO 10/27/17 21:00 (Pepcid) 20 mg BID PO 10/26/17 21:00 10/27/17 10:08 (Tylenol) 325 mg Q4H PRN PO 10/26/17 20:45 (Percocet 5-325 Mg) 1 tab Q4H PRN PO 10/26/17 20:45 10/27/17 01:01 (Brilinta) 90 mg BID PO 10/27/17 09:00 10/27/17 10:08 (Lopressor) 12.5 mg BID PO 10/26/17 21:00 10/27/17 10:09 Vital Signs / I&O Vital Signs Date Time Temp Pulse Resp B/P (MAP) Pulse Ox O2 Delivery O2 Flow Rate FiO2 10/27/17 07:26 98.4 61 16 135/75 (95) 97 10/27/17 05:00 48 10/27/17 03:00 51 10/27/17 03:00 98.7 57 108/60 (76) 98 10/27/17 02:00 56 10/27/17 01:00 54 10/27/17 00:40 99.2 55 103/64 (77) 97 10/27/17 00:00 52 10/26/17 23:00 66 10/26/17 22:00 66 10/26/17 21:00 72 10/26/17 20:00 99.5 65 103/63 (76) 97 10/26/17 19:04 10/26/17 19:00 61 10/26/17 18:00 49 16 111/61 (78) 100 Room Air 10/26/17 17:00 52 16 113/56 (75) 99 Room Air 10/26/17 15:26 67 16 99 Room Air 10/26/17 15:23 16 100 Room Air 10/26/17 15:19 98.0 58 16 119/63 (81) 98 I/O 10/26/17 10/26/17 10/26/17 10/27/17 10/27/17 10/27/17 07:00 15:00 23:00 07:00 15:00 23:00 Intake Total 480 ml Output Total 200 ml 875 ml Balance -200 ml -395 ml Intake Oral 480 ml Output Urine Total 200 ml 875 ml # Voids 1 Physical Exam GENERAL: Well developed, well nourished. No acute distress. HEENT: Jugular venous pressure is normal. CHEST: Lungs clear to auscultation bilaterally. Unlabored respiratory effort. CARDIAC: Regular rate and rhythm without S3, S4, 1/6 XAVIER ABDOMEN: Soft, nontender, no hepatosplenomegaly. Bowel sounds present. EXTREMITIES: No clubbing, cyanosis, or edema. Right groin OK Laboratory Laboratory Tests Test 10/26/17 15:25 10/27/17 01:35 10/27/17 05:09 White Blood Count 8.4 TH/MM3 6.5 TH/MM3 Red Blood Count 4.06 MIL/MM3 3.74 MIL/MM3 Hemoglobin 13.6 GM/DL 12.6 GM/DL Hematocrit 39.5 % 36.0 % Mean Corpuscular Volume 97.2 FL 96.4 FL Mean Corpuscular Hemoglobin 33.5 PG 33.7 PG Mean Corpuscular Hemoglobin Concent 34.5 % 34.9 % Red Cell Distribution Width 14.1 % 13.9 % Platelet Count 195 TH/MM3 160 TH/MM3 Mean Platelet Volume 7.5 FL 7.2 FL Neutrophils (%) (Auto) 76.0 % 65.4 % Lymphocytes (%) (Auto) 14.7 % 22.7 % Monocytes (%) (Auto) 8.4 % 10.6 % Eosinophils (%) (Auto) 0.8 % 1.0 % Basophils (%) (Auto) 0.1 % 0.3 % Neutrophils # (Auto) 6.4 TH/MM3 4.3 TH/MM3 Lymphocytes # (Auto) 1.2 TH/MM3 1.5 TH/MM3 Monocytes # (Auto) 0.7 TH/MM3 0.7 TH/MM3 Eosinophils # (Auto) 0.1 TH/MM3 0.1 TH/MM3 Basophils # (Auto) 0.0 TH/MM3 0.0 TH/MM3 CBC Comment DIFF FINAL DIFF FINAL Differential Comment Prothrombin Time 10.5 SEC Prothromb Time International Ratio 1.0 RATIO Activated Partial Thromboplast Time 24.9 SEC 31.3 SEC Blood Urea Nitrogen 13 MG/DL 11 MG/DL Creatinine 0.74 MG/DL 0.77 MG/DL Random Glucose 94 MG/DL 81 MG/DL Total Protein 6.5 GM/DL Albumin 3.2 GM/DL Calcium Level 8.5 MG/DL 8.3 MG/DL Alkaline Phosphatase 64 U/L Aspartate Amino Transf (AST/SGOT) 80 U/L Alanine Aminotransferase (ALT/SGPT) 18 U/L Total Bilirubin 0.6 MG/DL Sodium Level 138 MEQ/L 139 MEQ/L Potassium Level 3.8 MEQ/L 3.8 MEQ/L Chloride Level 104 MEQ/L 106 MEQ/L Carbon Dioxide Level 26.2 MEQ/L 25.9 MEQ/L Anion Gap 8 MEQ/L 7 MEQ/L Estimat Glomerular Filtration Rate 103 ML/MIN 98 ML/MIN Total Creatine Kinase 543 U/L 550 U/L Creatine Kinase MB 45.7 NG/ML 27.5 NG/ML Creatine Kinase MB % 8.4 % 5.0 % Troponin I 12.70 NG/ML Lipase 68 U/L Triglycerides Level 78 MG/DL Cholesterol Level 106 MG/DL LDL Cholesterol 49 MG/DL HDL Cholesterol 41.5 MG/DL Cholesterol/HDL Ratio 2.55 RATIO Imaging Last 24 hours Impressions Chest X-Ray 10/26/17 1520 Signed Impressions: Service Date/Time: Thursday, October 26, 2017 15:46 - CONCLUSION: 1. No acute cardiopulmonary disease. Janusz Perea MD Assessment and Plan Problem List: (1) Stented coronary artery ICD Codes: Z95.5 - Presence of coronary angioplasty implant and graft (2) Coronary artery disease ICD Codes: I25.10 - Atherosclerotic heart disease of [place] coronary artery without angina pectoris (3) Inferior myocardial infarction ICD Codes: I21.19 - ST elevation (STEMI) myocardial infarction involving other coronary artery of inferior wall (4) NSTEMI (non-ST elevated myocardial infarction) ICD Codes: I21.4 - Non-ST elevation (NSTEMI) myocardial infarction (5) Rheumatoid arthritis ICD Codes: M06.9 - Rheumatoid arthritis, unspecified Assessment and Plan Possible discharge tomorrow Discussed Condition With Cuate Fields MD Oct 27, 2017 12:32
--- NOTE | 2017-10-27 14:20 | EKG ---
Date Performed: 10/26/2017 Time Performed: 15:18:40 PTAGE: 77 years EKG: SINUS BRADYCARDIA WITH SINUS ARRHYTHMIA CONSIDER INFERIOR MYOCARDIAL INFARCTION, AGE INDETE RMINATE BORDERLINE ECG NO PREVIOUS TRACING DOCTOR: Oneil Ng Interpretating Date/Time 10/27/2017 14:19:37
--- NOTE | 2017-10-27 14:21 | EKG ---
Date Performed: 10/27/2017 Time Performed: 05:52:12 PTAGE: 77 years EKG: Sinus bradycardia with sinus arrhythmia Left axis deviation Inferior infarct - age undeterm ined Abnormal ECG PREVIOUS TRACING : 10/26/2017 15.18 DOCTOR: Oneil Ng Interpretating Date/Time 10/27/2017 14:19:52
--- NOTE | 2017-10-27 16:46 | HHI.PR ---
Objective Vitals Vital Signs Date Time Temp Pulse Resp B/P (MAP) Pulse Ox O2 Delivery O2 Flow Rate FiO2 10/27/17 15:00 64 10/27/17 14:00 48 10/27/17 13:00 64 10/27/17 12:00 62 10/27/17 11:00 50 10/27/17 11:00 98.6 54 16 136/87 (103) 100 10/27/17 10:00 68 10/27/17 09:00 64 10/27/17 08:00 48 10/27/17 07:26 98.4 61 16 135/75 (95) 97 10/27/17 05:00 48 10/27/17 03:00 51 10/27/17 03:00 98.7 57 108/60 (76) 98 10/27/17 02:00 56 10/27/17 01:00 54 10/27/17 00:40 99.2 55 103/64 (77) 97 10/27/17 00:00 52 10/26/17 23:00 66 10/26/17 22:00 66 10/26/17 21:00 72 10/26/17 20:00 99.5 65 103/63 (76) 97 10/26/17 19:04 10/26/17 19:00 61 10/26/17 18:00 49 16 111/61 (78) 100 Room Air 10/26/17 17:00 52 16 113/56 (75) 99 Room Air I/O 10/26/17 10/26/17 10/26/17 10/27/17 10/27/17 10/27/17 07:00 15:00 23:00 07:00 15:00 23:00 Intake Total 480 ml Output Total 200 ml 875 ml Balance -200 ml -395 ml Intake Oral 480 ml Output Urine Total 200 ml 875 ml # Voids 1 Result Diagram: 10/27/17 0509 10/27/17 0509 A/P Problem List: (1) NSTEMI (non-ST elevated myocardial infarction) ICD Code: I21.4 - Non-ST elevation (NSTEMI) myocardial infarction (2) Rheumatoid arthritis ICD Code: M06.9 - Rheumatoid arthritis, unspecified Christie Tinajero MD Oct 27, 2017 16:46
[2017-10-27] MEDS ORDERED: ATORVASTATIN 40 MG TAB PO SCH (21:00)
[2017-10-27] MEDS ORDERED: ATORVASTATIN 10 MG TAB PO SCH (21:00)
[2017-10-27] MEDS ORDERED: ATORVASTATIN 80 MG TAB PO SCH (21:00)
[2017-10-28] VITALS (12 sets, daily range): BP systolic 113–131; BP diastolic 72–83; PULSE 52–84; RESP 16; TEMP 97.7–99.2; O2SAT 96–98
[2017-10-28] MEDS: SODIUM CHLORIDE 0.9% FLUSH 10 ML FLUSH IV FLUSH SCH (09:18)
[2017-10-28] MEDS: FAMOTIDINE 20 MG TAB PO SCH (09:19)
[2017-10-28] MEDS: METOPROLOL TARTRATE 25 MG TAB PO SCH (09:19)
[2017-10-28] MEDS: TICAGRELOR 90 MG TAB PO SCH (09:19)
[2017-10-28] MEDS: ASPIRIN 81 MG CHEW TAB CHEW SCH (09:49)
--- NOTE | 2017-10-28 11:35 | PD.CARD.PN ---
Subjective Subjective Remarks No angina or SOB Objective Medications Current Medications Medications (Trade) Dose Ordered Sig/Chun Route Start Time Stop Time Status Last Admin (Heparin Inj) 5,000 units UNSCH PRN IV 10/26/17 23:00 (Heparin Inj) 2,500 units UNSCH PRN IV 10/26/17 23:00 Heparin Sodium/ Dextrose 250 ml @ 10 mls/hr TITRATE IV 10/26/17 17:30 10/26/17 17:22 (NS Flush) 2 ml UNSCH PRN IV FLUSH 10/26/17 17:00 (NS Flush) 2 ml BID IV FLUSH 10/26/17 21:00 10/28/17 09:18 (Tylenol) 500 mg Q4H PRN PO 10/26/17 17:00 (Zofran Inj) 4 mg Q6H PRN IVP 10/26/17 17:00 (Narcan Inj) 0.4 mg UNSCH PRN IV PUSH 10/26/17 17:00 (Milk Of Magnesia Liq) 30 ml Q12H PRN PO 10/26/17 17:00 (Senokot) 17.2 mg Q12H PRN PO 10/26/17 17:00 (Dulcolax Supp) 10 mg DAILY PRN RECTAL 10/26/17 17:00 (Lactulose Liq) 30 ml DAILY PRN PO 10/26/17 17:00 (Aspirin Chew) 81 mg DAILY CHEW 10/27/17 09:00 10/28/17 09:49 (Pepcid) 20 mg BID PO 10/26/17 21:00 10/28/17 09:19 (Tylenol) 325 mg Q4H PRN PO 10/26/17 20:45 (Percocet 5-325 Mg) 1 tab Q4H PRN PO 10/26/17 20:45 10/27/17 01:01 (Brilinta) 90 mg BID PO 10/27/17 09:00 10/28/17 09:19 (Lopressor) 12.5 mg BID PO 10/26/17 21:00 10/28/17 09:19 (Lipitor) 10 mg HS PO 10/27/17 21:00 10/27/17 20:59 Vital Signs / I&O Vital Signs Date Time Temp Pulse Resp B/P (MAP) Pulse Ox O2 Delivery O2 Flow Rate FiO2 10/28/17 07:00 97.8 64 16 126/74 (91) 98 10/28/17 07:00 60 10/28/17 06:24 52 10/28/17 04:08 84 10/28/17 03:41 99.2 62 124/78 (93) 97 10/28/17 03:00 66 10/28/17 01:00 58 10/28/17 00:14 98.1 63 113/72 (86) 98 10/28/17 00:00 54 10/27/17 23:00 54 10/27/17 22:00 54 10/27/17 21:30 21 10/27/17 21:00 64 10/27/17 20:00 68 10/27/17 20:00 98.1 62 148/97 (114) 97 10/27/17 19:00 59 10/27/17 15:00 98.4 68 17 137/85 (102) 97 10/27/17 15:00 64 10/27/17 14:00 48 10/27/17 13:00 64 10/27/17 12:00 62 I/O 10/27/17 10/27/17 10/27/17 10/28/17 10/28/17 10/28/17 07:00 15:00 23:00 07:00 15:00 23:00 Intake Total 480 ml 480 ml 240 ml Output Total 875 ml 400 ml Balance -395 ml 80 ml 240 ml Intake Oral 480 ml 480 ml 240 ml Output Urine Total 875 ml 400 ml # Voids 4 Physical Exam GENERAL: Well developed, well nourished. No acute distress. HEENT: Jugular venous pressure is normal. CHEST: Lungs clear to auscultation bilaterally. Unlabored respiratory effort. CARDIAC: Regular rate and rhythm without S3, S4, 1/6 XAVIER ABDOMEN: Soft, nontender, no hepatosplenomegaly. Bowel sounds present. EXTREMITIES: No clubbing, cyanosis, or edema. Right groin OK Assessment and Plan Problem List: (1) Stented coronary artery ICD Codes: Z95.5 - Presence of coronary angioplasty implant and graft Plan: Cont ASA 81mg + Brilinta 90mg bid (2) Coronary artery disease ICD Codes: I25.10 - Atherosclerotic heart disease of [place] coronary artery without angina pectoris (3) Inferior myocardial infarction ICD Codes: I21.19 - ST elevation (STEMI) myocardial infarction involving other coronary artery of inferior wall (4) NSTEMI (non-ST elevated myocardial infarction) ICD Codes: I21.4 - Non-ST elevation (NSTEMI) myocardial infarction (5) Rheumatoid arthritis ICD Codes: M06.9 - Rheumatoid arthritis, unspecified Assessment and Plan OK to DC home on current meds Cuate Fields MD Oct 28, 2017 11:34
[2017-10-28] MEDS ORDERED: IOHEXOL 350 MG/ML 100 ML BTL (for Cath Lab) OTHER ONE (13:25)
[2017-10-28] MEDS ORDERED: IOHEXOL 350 MG/ML 50 ML BTL (for Cath Lab) OTHER ONE (13:25)
== END 2017-10-28 13:26 | disposition home or self-care (01) | DRG 247 ==
LOC: NEPC 15:09 → NEDA 16:52 → HCIS 20:38
PROVIDERS: ADMIT Hospitalist; ATTEND Hospitalist
PROC: 027034Z Dilation of Coronary Artery, One Artery with Drug-eluting Intraluminal Device, Percutaneous Approach (ICD-10-PCS; principal; 2017-10-26)
PROC: 4A023N7 Measurement of Cardiac Sampling and Pressure, Left Heart, Percutaneous Approach (ICD-10-PCS; 2017-10-26)
PROC: B2111ZZ Fluoroscopy of Multiple Coronary Arteries using Low Osmolar Contrast (ICD-10-PCS; 2017-10-26)
PROC: B2151ZZ Fluoroscopy of Left Heart using Low Osmolar Contrast (ICD-10-PCS; 2017-10-26)
DX: I21.19 ST elevation (STEMI) myocardial infarction involving other coronary artery of inferior wall (principal); M06.9 Rheumatoid arthritis, unspecified; I10 Essential (primary) hypertension; H91.93 Unspecified hearing loss, bilateral; I25.10 Atherosclerotic heart disease of native coronary artery without angina pectoris; K21.9 Gastro-esophageal reflux disease without esophagitis; M19.90 Unspecified osteoarthritis, unspecified site; Z87.891 Personal history of nicotine dependence
CPT/HCPCS: 71045; 80048; 80053; 80061; 82550; 82552; 83690; 84484; 85025; 85610; 85730; 92928; 93005; 93458; 99152; 99153; C1725; C1760; C1769; C1874; C1887; C1893; G0269; J0583; J1644; J2250; J2370; J7030; Q9967